=== PATIENT | male | born 1955 | race Caucasian/White ===

== ENCOUNTER 2021-02-05 08:01 | Outpatient (CLI) | payer BC | END 2021-02-05 08:02 | disposition home or self-care (01) | LOC: CSHCT 08:01 | PROVIDERS: ATTEND Internal Medicine Cardiovascular Disease | DX: I71.9 Aortic aneurysm of unspecified site, without rupture (principal); I70.90 Unspecified atherosclerosis | CPT/HCPCS: 71275; 82565 ==

== ENCOUNTER 2022-02-09 11:11 | Outpatient (CLI) | payer BC ==
[2022-02-09] MEDS ORDERED: Magnevist 469MG/ML 20 ML VIAL ONE (15:52)
== END 2022-02-09 11:12 | disposition home or self-care (01) ==
LOC: CSHMRI 11:11
PROVIDERS: ATTEND Nurse Practitioner Adult Health
DX: R42 Dizziness and giddiness (principal); R29.898 Other symptoms and signs involving the musculoskeletal system
CPT/HCPCS: 70553; 82565; A9579

== ENCOUNTER 2025-03-25 08:22 | Outpatient (CLI) | payer BC ==
[2025-03-25 09:38] LABS: Estimated GFR - POC 72.0
[2025-03-25] MEDS ORDERED: Iopamidol 300 61% 100 ML VIAL FS ONE (09:46)
== END 2025-03-25 08:23 | disposition home or self-care (01) ==
LOC: CSHCT 08:22
PROVIDERS: ATTEND Internal Medicine
DX: R10.13 Epigastric pain (principal); K57.30 Diverticulosis of large intestine without perforation or abscess without bleeding
CPT/HCPCS: 36415; 74177; 82565

== ENCOUNTER 2025-05-08 09:16 | Day surgery (SDC) | payer BC ==
[2025-05-01 14:16] VITALS: BMI 26.9
[2025-05-08] MEDS ORDERED: Bupivacaine HCl 0.5%/Epinephrine 1:200,000/PF 30 ml Vial ONE (09:44)
[2025-05-08] MEDS ORDERED: CEFAZOLIN 2 GM VIAL ONE (09:44)
[2025-05-08] MEDS ORDERED: PROPOFOL 20 ML ONE (09:51)
[2025-05-08] MEDS ORDERED: Lidocaine 1% PF 5 ML VIAL ONE (09:53)
[2025-05-08] MEDS ORDERED: HYDROmorphone 0.5 MG/0.5 ML SYRINGE ONE (12:30)
[2025-05-08] MEDS ORDERED: HYDROcodone/Acetaminophen 5/325 mg Tablet ONE (13:06)
== END 2025-05-08 13:50 | disposition home or self-care (01) ==
LOC: CSHSDC 09:16
PROVIDERS: ATTEND Surgery
PROC: 0WQF4ZZ Repair Abdominal Wall, Percutaneous Endoscopic Approach (ICD-10-PCS; principal; 2025-05-08)
DX: K43.2 Incisional hernia without obstruction or gangrene (principal); I10 Essential (primary) hypertension; E78.5 Hyperlipidemia, unspecified; Z79.899 Other long term (current) drug therapy; Z79.82 Long term (current) use of aspirin
CPT/HCPCS: A6258; C1781; J1100; J1171; J2704; S2900